=== PATIENT | female | born 1985 | race Two or more races ===

== ENCOUNTER 2022-12-23 19:49 | Emergency (ER) | payer OTHER, SELFPAY ==
[2022-12-23 19:54] VITALS: BP 153/97; PULSE 87; RESP 16; TEMP 37; O2SAT 96; BMI 36.9
[2022-12-23 20:09] VITALS: PULSE 88
--- NOTE | 2022-12-23 20:13 | PC.NURSE ---
No edema, no pain at present. PMS intact
--- NOTE | 2022-12-23 20:19 | ECG_ITS ---
[facility] Test Date: 2022-12-23 Pat Name: RADHA RENEE Department: Room: - Gender: Female Secy: : 1985 Requested By: [id number] Order Number: [id number] Reading MD: VENESSA COVINGTON Measurements Intervals [place] Rate: 82 P: 30 NV: 120 QRS: 69 QRSD: 76 T: 16 QT: 364 QTc: 403 Interpretive Statements 1100 Sinus rhythm 9110 normal ECG No previous ECG available for comparison Electronically Signed On 12-25-2022 11:41:26 EDT by VENESSA COVINGTON
--- NOTE | 2022-12-23 20:22 | ED_ITS ---
HPI - General Adult General Chief complaint: Chest Pain Stated complaint: PALPITATION Time Seen by Provider: 12/23/22 20:15 Source: patient Mode of arrival: ambulance Limitations: no limitations History of Present Illness HPI narrative: patient is a 37-year-old female who presents to the emergency department for the evaluation of palpitations over the last day. Patient was recently diagnosed with probable hypothyroidism by her PCP, she is due to see an event producer this week so she has not been started on any medications because her PCP was not comfortable doing so until she saw the specialist. She states over the last day she has had the sensation that her heart is pounding and racing. She has had no chest pain. She has had some nausea and minimal shortness of breath. No fevers, cough, congestion, hemoptysis. She denies vomiting, diarrhea, urinary symptoms or peripheral edema. She is not concerned for . She states she called her PCP office and was told if she had palpitations she needed to come to the emergency department. Related Data Home Medications Medication Instructions Recorded Confirmed loratadine 10 mg tablet 10 mg PO Q24H 12/23/22 12/23/22 Allergies Allergy/AdvReac Type Severity Reaction Status Date / Time No Known Drug Allergies Allergy Verified 12/23/22 20:02 Review of Systems ROS Constitutional Denies: fever or chills Ears, nose, mouth, and throat Denies: throat pain or neck pain Cardiovascular Reports: palpitations; Denies: chest pain Respiratory Reports: shortness of breath; Denies: cough Gastrointestinal Reports: nausea; Denies: vomiting Genitourinary Denies: painful urination Musculoskeletal Denies: back pain Integumentary/Breast Denies: rash PFSH PFSH Social History Smoking status: Current some day smoker Exam Narrative Exam Narrative: Gen.: Awake, alert, in no distress Head: Normocephalic, atraumatic ENT: Moist mucous membranes Respiratory: No respiratory distress, lungs clear bilaterally Cardio: Regular rate and rhythm Gastrointestinal: Abdomen is soft, nondistended and nontender to palpation Extremities: Moves extremities equally, no injuries noted Psych: Normal mood and affect Neuro: No focal neuro deficit Skin: Warm, dry, intact Constitutional Vital Signs - 24 hr 12/23/22 19:54 12/23/22 21:41 Temperature 98.6 F Pulse Rate [Monitor] 87 84 Respiratory Rate 16 18 Blood Pressure [Left Arm] 147/67 H Blood Pressure [Right Arm] 153/97 H Pulse Oximetry 96 97 Oxygen Delivery Method Room Air Room Air Course Vital Signs Vital signs: Vital Signs Temperature 98.6 F 12/23/22 19:54 Pulse Rate 87 12/23/22 19:54 Respiratory Rate 16 12/23/22 19:54 Blood Pressure 153/97 H 12/23/22 19:54 Pulse Oximetry 96 12/23/22 19:54 Oxygen Delivery Method Room Air 12/23/22 19:54 Temperature 98.6 F 12/23/22 19:54 Pulse Rate 84 12/23/22 21:41 Respiratory Rate 18 12/23/22 21:41 Blood Pressure 147/67 H 12/23/22 21:41 Pulse Oximetry 97 12/23/22 21:41 Oxygen Delivery Method Room Air 12/23/22 21:41 Medical Decision Making MDM Narrative Medical decision making narrative: patient treated with IV fluids, she maintains normal vital signs, d-dimer, troponin and labs are within normal limits. Her thyroid studies are off as expected and she will need to be treated with endocrinology for hyperthyroidism. Return to the Emergency Room if symptoms change or worsen. Medical Records Medical records reviewed: Yes I reviewed the patient's medical records Lab Data Lab results reviewed: Yes I reviewed the patient's lab results Labs: Lab Results 12/23/22 12/23/22 Range/Units 20:23 20:25 WBC 6.9 (4.0-11.0) 10^3/uL RBC 4.63 (4.20-5.40) 10^6/uL Hgb 13.8 (12.0-16.0) g/dL Hct 40.5 (36.0-48.0) % MCV 87.5 (81.0-99.0) fL MCH 29.8 (26.7-34.0) pg MCHC 34.1 (29.9-35.2) g/dL RDW 12.5 (11.0-15.0) % Plt Count 378 (150-450) 10^3/uL MPV 9.8 (9.5-13.5) fL Neut % (Auto) 44.8 (43.0-75.0) % Lymph % (Auto) 40.0 (20.5-60.0) % Cross % (Auto) 13.1 H (1.7-12.0) % Eos % (Auto) 1.7 (0.9-7.0) % Baso % (Auto) 0.3 (0.2-2.0) % Neut # (Auto) 3.1 (1.4-6.5) 10^3/uL Lymph # (Auto) 2.8 (1.2-3.8) 10^3/uL Cross # (Auto) 0.9 H (0.3-0.8) 10^3/uL Eos # (Auto) 0.1 (0.0-0.7) 10^3/uL Baso # (Auto) 0.0 (0.0-0.1) 10^3/uL Abs Immat Gran (auto) 0.01 (0.00-0.03) 10^3/uL Imm/Tot Granulo (auto) 0.1 (0.0-0.5) % D-Dimer 0.38 (<=0.59) mg/L FEU Sodium 137 (136-145) mmol/L Potassium 4.3 (3.5-5.1) mmol/L Chloride 106 (98-107) mmol/L Carbon Dioxide 29.2 (21.0-32.0) mmol/L Anion Gap 6.1 BUN 14.0 (7.0-18.0) mg/dL Creatinine 0.90 (0.55-1.02) mg/dL Est GFR ( Amer) >60 (>=60) Est GFR (Non-Af Amer) >60 (>=60) BUN/Creatinine Ratio 15.6 Glucose 111 H (74-106) mg/dL Calcium 9.3 (8.5-10.1) mg/dL Total Bilirubin 0.2 (0.2-1.0) mg/dL AST 23 (15-37) U/L ALT 67 H (14-59) U/L Alkaline Phosphatase 70 (46-116) U/L Troponin I High Sens 14.3 (4.0-51.3) pg/mL Total Protein 6.6 (6.4-8.2) g/dL Albumin 3.0 L (3.4-5.0) g/dL Globulin 3.6 g/dL Albumin/Globulin Ratio 0.8 TSH <0.007 L (0.358-3.740) uIU/mL Free T4 2.85 H (0.76-1.46) ng/dL Free T3 10.54 H (2.18-3.98) pg/mL Serum HCG, Qual Negative (NEGATIVE) Imaging Data Chest x-ray: Attestation: I personally reviewed and interpreted this imaging study as follows: My impression: 1 view CXR: no acute cardiopulmonary changes, no infiltrate, normal heart size ECG Data Attestation: I personally reviewed and interpreted this ECG as follows: (normal sinus rhythm at a rate of eighty-two, no acute ST elevation or ectopy. EKG reviewed by attending physician) Discharge Plan Discharge Chief Complaint: Chest Pain Clinical Impression: Palpitations, Hyperthyroidism Patient Disposition: Home, Self-Care Time of Disposition Decision: 21:42 Condition: Good Mode of Transportation: Private Vehicle Prescriptions / Home Meds: No Action loratadine 10 mg tablet 10 mg PO Q24H Instructions: Heart Palpitations (ED), Hyperthyroidism (ED) Additional Instructions: Follow up with your event producer as scheduled Stand Alone Forms: Portal Instructions Referrals: Physician,Non-Staff, MD [Primary Care Provider] - 1 week Discharge Date/Time: 12/23/22 21:47
[2022-12-23] MEDS: ONDANSETRON PF 4 MG/2 ML VIAL IV (20:36)
[2022-12-23] MEDS: 0.9 % SODIUM CHLORIDE 1,000 ML 1000 ML IV (20:36)
[2022-12-23 20:44] LABS: Basophils Percent Auto 0.3 % (0.2-2.0); Eosinophils Absolute Auto 0.1 10^3/uL (0.0-0.7); Eosinophils Percent Auto 1.7 % (0.9-7.0); Hematocrit 40.5 % (36.0-48.0); Hemoglobin 13.8 g/dL (12.0-16.0); Immature Granulocytes Abs Auto 0.01 10^3/uL (0.00-0.03); Immature Granulocytes Pct Auto 0.1 % (0.0-0.5); Lymphocytes Absolute Auto 2.8 10^3/uL (1.2-3.8); Mean Corpuscular HGB Conc 34.1 g/dL (29.9-35.2); Mean Corpuscular Hemoglobin 29.8 pg (26.7-34.0); Mean Corpuscular Volume 87.5 fL (81.0-99.0); Mean Platelet Volume 9.8 fL (9.5-13.5); Monocytes Absolute Auto 0.9 10^3/uL (0.3-0.8); Monocytes Percent Auto 13.1 % (1.7-12.0); Neutrophils Absolute Auto 3.1 10^3/uL (1.4-6.5); Neutrophils Percent Auto 44.8 % (43.0-75.0); Platelet Count 378 10^3/uL (150-450); Red Blood Count 4.63 10^6/uL (4.20-5.40); Red Cell Distribution Width 12.5 % (11.0-15.0); White Blood Count 6.9 10^3/uL (4.0-11.0)
[2022-12-23 20:56] LABS: HCG Qualitative NEGATIVE (NEGATIVE)
[2022-12-23 21:20] LABS: D Dimer 0.38 mg/L FEU (<=0.59)
--- NOTE | 2022-12-23 21:22 | XR_ITS ---
[facility] [id number] Patient Name: RADHA RENEE MRN: [id number] date: 1985 Sex: F Assigned Patient Location: ER Current Patient Location: Accession/Order Number: [id number] Exam Date: 12/23/2022 21:30 Report Date: 12/23/2022 21:52 At the request of: CB CORRIGAN Procedure: XR chest 1V EXAMINATION: XR chest 1V HISTORY: Palpitations COMPARISON: None. TECHNIQUE: Portable chest FINDINGS: The lung parenchyma is free of consolidation or infiltrate. No pneumothorax or pleural effusion. The cardiac, mediastinal and hilar contours are normal. The visualized osseous structures exhibit no gross abnormality. IMPRESSION: No acute cardiopulmonary abnormality. Electronically authenticated by: ALFONZO SOTO Date: 12/23/2022 21:52
[2022-12-23 21:34] LABS: Alanine Aminotransferase 67 U/L (14-59); Albumin Globulin Ratio 0.8; Alkaline Phosphatase 70 U/L (46-116); Anion Gap 6.1; Aspartate Amino Transferase 23 U/L (15-37); BUN Creatinine Ratio 15.6; Bilirubin Total 0.2 mg/dL (0.2-1.0); Calcium 9.3 mg/dL (8.5-10.1); Carbon Dioxide 29.2 mmol/L (21.0-32.0); Chloride 106 mmol/L (98-107); Estimated GFR (African America >60 (>=60); Estimated GFR (Non-African Ame >60 (>=60); Free T3 10.54 pg/mL (2.18-3.98); Free T4 2.85 ng/dL (0.76-1.46); Globulin 3.6 g/dL; Glucose 111 mg/dL (74-106); Potassium 4.3 mmol/L (3.5-5.1); Sodium 137 mmol/L (136-145); Thyroid Stimulating Hormone <0.007 uIU/mL (0.358-3.740); Total Protein 6.6 g/dL (6.4-8.2); Troponin I High Sensitivity 14.3 pg/mL (4.0-51.3)
[2022-12-23 21:41] VITALS: BP 147/67; PULSE 84; RESP 18; O2SAT 97
== END 2022-12-23 21:47 | disposition home or self-care (01) ==
PROVIDERS: Physician Assistant; Emergency Provider Internal Medicine
DX: R00.2 Palpitations (principal); E05.90 Thyrotoxicosis, unspecified without thyrotoxic crisis or storm; F17.210 Nicotine dependence, cigarettes, uncomplicated
CPT/HCPCS: 36415; 71045; 80053; 84439; 84443; 84481; 84484; 84703; 85025; 85378; 93005; 96374; 99285